=== PATIENT | male | born 2000 | race Caucasian/White ===

== ENCOUNTER → 2018-03-19 22:15 | Emergency (ER) | payer OTHER ==
--- NOTE | 2018-03-20 01:01 | ED ---
Laceration/Wound HPI - HPI Summary HPI Summary: 18-year-old male presents with scalp laceration today. He states he jumped up and bumped his head on some drywall. He has laceration to his scalp that is not currently bleeding. Tetanus up-to-date. No loss conscious. No nausea vomiting. States only has pain at the site. No neck pain. No dizziness. No change in vision. Denies any difficulties concentrating. Has no medical conditions. - History of Current Complaint Stated Complaint: HEAD INJURY/AC Time Seen by Provider: 03/20/18 00:44 Pain Intensity: 6 - Allergy/Home Medications Allergies/Adverse Reactions: Allergies Allergy/AdvReac Type Severity Reaction Status Date / Time No Known Allergies Allergy Verified 03/19/18 22:21 PMH/Surg Hx/FS Hx/Imm Hx Endocrine/Hematology History: Denies: Hx Anticoagulant Therapy Respiratory History: Denies: Hx Asthma Infectious Disease History: No Infectious Disease History: Denies: Traveled Outside the [place] in Last 30 Days - Family History Known Family History: Negative: Diabetes - Social History Alcohol Use: Weekly Substance Use Type: Reports: None Smoking Status (MU): Never Smoked Tobacco Review of Systems Negative: Fever Negative: Chest Pain Negative: Shortness Of Breath Negative: Vomiting, Nausea Positive: Other - laceration scalp All Other Systems Reviewed And Are Negative: Yes Physical Exam Triage Information Reviewed: Yes Vital Signs On Initial Exam: Initial Vitals Temp Pulse Resp BP Pulse Ox 100.0 F 89 16 127/72 97 03/19/18 22:19 03/19/18 22:19 03/19/18 22:19 03/19/18 22:19 03/19/18 22:19 Vital Signs Reviewed: Yes Appearance: Positive: Well-Appearing Skin: Positive: Warm, Dry, Other - 4cm by 1/2cm laceration Head/Face: Positive: Normal Head/Face Inspection Eyes: Positive: Normal, EOMI, KENDY, Conjunctiva Clear ENT: Positive: Normal ENT inspection, Pharynx normal, TMs normal Respiratory/Lung Sounds: Positive: Clear to Auscultation, Breath Sounds Present Cardiovascular: Positive: Normal, RRR Abdomen Description: Positive: Nontender, Soft Bowel Sounds: Positive: Present Musculoskeletal: Positive: Normal Neurological: Positive: Sensory/Motor Intact, Alert, Oriented to Person Place, Time, CN Intact II-III Psychiatric: Positive: Normal Procedures - Laceration/Wound Repair 1 Location: head Description: Linear Anesthesia: Local, 1.0%, Epi Length, Depth and Shape: 4cm by 1/2cm Irrigated w/ Saline (ccs): 100 Closure: Karen #__ - 4 Diagnostics - Vital Signs Vital Signs Temp Pulse Resp BP Pulse Ox 03/19/18 22:19 100.0 F 89 16 127/72 97 - Laboratory Lab Statement: Any lab studies that have been ordered have been reviewed, and results considered in the medical decision making process. Laceration Repair Course/Dx - Course Course Of Treatment: 18-year-old male presents with scalp laceration today. He states he jumped up and bumped his head on some drywall. He has laceration to his scalp that is not currently bleeding. Tetanus up-to-date. No loss conscious. No nausea vomiting. States only has pain at the site. No neck pain. No dizziness. No change in vision. Denies any difficulties concentrating. Has no medical conditions. On exam has 4cm by half centimeter laceration of the scalp. Normal neuro exam. Clean area and placed 4 karen. Told to keep the area clean. Cautioned if develop any concussion symptoms should follow up with [facility]. Patient understands agrees with plan. - Differential Dx Differental Diagnoses: Abrasion, Avulsion, Laceration - Clinical Impression Provider Diagnoses: Scalp laceration Discharge - Sign-Out/Discharge Documenting (check all that apply): Patient Departure - Discharge Plan Condition: Good Disposition: HOME Patient Education Materials: Staple Care (ED) Referrals: No Primary Care Phys,NOPCP [Primary Care Provider] - Additional Instructions: Take Tylenol or ibuprofen for pain Do not scrub staple area Return to ED, urgent care or primary in 7 days to have karen removed Return to ED if develop signs of infection such as fever, spreading redness, or pus or vomit or any new or worsening symptoms - Billing Disposition and Condition Condition: GOOD Disposition: Home
[2018-03-20 01:11] VITALS: BP 138/76
== END | disposition home or self-care (01) ==
LOC: ED 22:15
DX: S01.01XA Laceration without foreign body of scalp, initial encounter (principal); W22.8XXA Striking against or struck by other objects, initial encounter; Y92.9 Unspecified place or not applicable
CPT/HCPCS: 12002; 99282